=== PATIENT | male | born 1930 | race Caucasian/White ===

== ENCOUNTER 2017-09-29 20:47 | Inpatient (IN) | payer MEDICARE ==
[~2017-09-29] VITALS: Ht 175.3 cm; Wt 67.2 kg
--- NOTE | ~2017-09-29 | HP ---
PATIENT: WILLIE ROE MEDICAL RECORD: [id number] ACCOUNT: [id number] LOCATION:[facility] D.2303 : 30 ADMISSION DATE: 09/29/17 HISTORY AND PHYSICAL EXAMINATION CHIEF COMPLAINT: Fall. HISTORY OF PRESENT ILLNESS: The patient is an 87-year-old gentleman who does reside [facility] by himself. Apparently, he was attempting to go to restroom when he fell, presented complaining of pain in the left hip, presented to the Emergency Room. The patient was found to have no evidence of fracture, but felt that the patient should be admitted. He had the Emergency Room physician who has spoken to my partner, Dr. Hoff and was told the patient did have pneumonia. Therefore, he warranted admission. The patient apparently had an x-ray of the hip as well as CT scan of the head, which were unremarkable, results are not available at the present time. PAST MEDICAL HISTORY: He has had bilateral carotid endarterectomies, he also had coronary artery bypass grafting times 2, he has had hyperlipidemia. ALLERGIES: PENICILLIN, MORPHINE. MEDICATIONS: Atorvastatin 10 mg once a day, lisinopril 20 mg once a day, amlodipine 5 mg once a day. HABITS: The patient states he drinks 1 glass of wine daily. He denies any tobacco use or abuse. SOCIAL HISTORY: The patient was born in [place], grew up in [place]. He has worked as pharmaceutical rep in the past. He currently volunteers at [employer]. FAMILY HISTORY: Apparently father of some some veneral disease, age unknown. Mother in 80s, reasons unknown. REVIEW OF SYSTEMS: CONSTITUTIONAL: He denies any headaches, seizure, or syncope. Denies change in visual or auditory acuity. PULMONARY: He denies any shortness of breath, cough or congestion, history of TB, asthma, or bronchitis. CARDIOVASCULAR: He has had no chest pain, palpitations, PND, or orthopnea. GASTROINTESTINAL: No chronic nausea, vomiting, melena, or hematochezia. GENITOURINARY: No urgency, frequency, or dysuria. PHYSICAL EXAMINATION: GENERAL: The patient is alert and he is oriented times 3. VITAL SIGNS: Temperature is 98, pulse 95, respirations 18, blood pressure 122/51, and O2 sat is 95%. HEENT: Head is normocephalic. No lesions. Ears: TMs clear. Eyes: Pupils equal, round and reactive to light. Extraocular movements are intact. Nasal cavity, oral cavity, and oropharynx clear. NECK: Supple. There is no adenopathy. HEART: Has a regular rate and rhythm without any murmurs, gallops, or rubs. LUNGS: Clear. ABDOMEN: Soft, bowel sounds positive. The patient does have pain over the left HISTORY AND PHYSICAL [id number] WILLIE ROE greater trochanter. LABORATORY DATA: White count is 12, hemoglobin 12.5, hematocrit 36.9, platelets are 267. Sodium of 134, potassium 3.9, chloride is 98, BUN is 15, creatinine of 1. Urinalysis was not done. Influenza A and B are not done. ASSESSMENT: Status post fall, contusion of left hip, supposed pneumonia, results not present at the current time. PLAN: The patient will be admitted. He will be started on Levaquin, but we will repeat chest x-ray, also repeat his CBC and BMP in a.m., possible discharge. TRANSINT:[id number] Voice Confirmation ID: [id number] DOCUMENT ID: [id number] AMBIKA WILLIS MD at 0656 CC: [id number] DICTATION DATE: 09/30/17719 UPPER CASER: 09/30/17913 DIS IN 10/05/17 [address] [place] [address]
--- NOTE | ~2017-09-29 | CN ---
PATIENT NAME:WILLIE ROE MEDICAL RECORD: [id number] : 30 LOCATION:[id number] ADMIT DATE: 09/29/17 ACCOUNT: [id number] CONSULTING PHYSICIAN: MIKA CANCINO MD REFERRING PHYSICIAN: KIARA QUICK DO DATE OF CONSULTATION: 10/02/2017 HISTORY OF PRESENT ILLNESS: An 87-year-old gentleman with history of coronary artery disease as well as cerebrovascular disease, admitted for a hip fracture. He is status post ORIF. 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 He has no history of cardiac arrhythmias. He has history of coronary artery disease as described above and some breathlessness, not markedly symptomatic. We are asked to see him concerning his cardiovascular status. PAST MEDICAL HISTORY: Includes; 1. History of coronary artery disease, status post grafting. 2. Carotid artery disease, status post endarterectomy. 3. Hypertension. 4. Hyperlipidemia. MEDICATIONS: Includes atorvastatin 10 mg p.o. daily, lisinopril 20 daily, amlodipine 5 daily. SOCIAL HISTORY: Retired. He is a nonsmoker. He lives independently. He takes care of all his ADLs, volunteers at [employer]. REVIEW OF SYSTEMS: The patient reports easy bruising but reports no swollen glands. The patient reports no fever, no night sweats, no significant weight gain, no significant weight loss. No significant exercise tolerance. The patient reports no dry eyes, no irritation, no vision change. Patient reports no difficulty hearing and no ear pain. Patient reports no frequent nose bleeds or nose and sinus problems. Patient reports on arm pain on exertion. No shortness of breath while lying down. No history of heart murmur. Patient reports no cough, no wheezing or coughing up blood. Patient reports no abdominal pain, no vomiting. Normal appetite. No diarrhea and not vomiting blood. No nausea and no constipation. Patient reports no incontinence. No difficulty urinating. No hematuria. No increased frequency. Patient reports no muscle aches. No weakness, no arthralgias, no back pain. No swelling of the extremities. Patient reports no abnormal mole, no jaundice, no rashes. Reports no loss of consciousness. No weakness and no numbness. No seizures, dizziness, or headaches. The patient reports no depression, no sleep disturbance, feeling safe in a relationship and no alcohol abuse. Patient reports on fatigue. Reports no runny nose or sinus pressure. No itching, no hives, and no frequent sneezing. ALLERGIES: PENICILLIN, MORPHINE. PHYSICAL EXAMINATION: GENERAL: Pleasant gentleman in no acute distress. VITAL SIGNS: Pulse is 70 and sinus. Blood pressure 112/74. HEENT: Normocephalic, atraumatic. NECK: No JVD or bruit. HEART: Regular. LUNGS: Henry are clear. CONSULT REPORT [id number] WILLIE ROE ABDOMEN: Soft, nontender. EXTREMITIES: Pulses 2+ with no edema. 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 Suspect cardiac enzymes are elevated due to demand ischemia. We would treat currently with low dose sotalol perioperatively, we will try to continue this agent for 2 months. Check echocardiograph study. Further recommendations based on the above. TRANSINT:[id number] Voice Confirmation ID: [id number] DOCUMENT ID: [id number] MIKA CANCINO MD at 1144 CC: [id number] DICTATION DATE: 10/02/17 1516 WELDER PIPE MAKING: 10/02/17 1602 ADM IN [facility] [address] [place] [address]
--- NOTE | ~2017-09-29 | OP ---
PATIENT NAME: WILLIE ROE MEDICAL RECORD: [id number] :30 LOCATION:[facility] D.2303 ADMISSION DATE:09/29/17 SURGEON: AMBIKA GOMEZ MD DATE OF OPERATION: 10/02/2017 PREOPERATIVE DIAGNOSIS: Displaced femoral neck fracture of the left hip. POSTOPERATIVE DIAGNOSIS: Displaced femoral neck fracture of the left hip. PROCEDURE: Bipolar endoprosthesis of the left hip. SURGEON: Ambika Gomez MD ANESTHESIA: General. INTRAOPERATIVE COMPLICATIONS: None. SUMMARY OF PATHOLOGIC FINDINGS: The patient had a displaced femoral neck fracture consistent with the preoperative diagnosis. IMPLANTS USED: Nancie Accolade II, 132 stem x 6, 26 mm -3 femoral head, and a 50 mm x 26 universal bipolar component. ESTIMATED BLOOD LOSS: 100 cc. OPERATIVE SUMMARY IN DETAIL: After obtaining the appropriate preoperative orthopedic surgery consent as well as anesthetic consultation, evaluation and clearance, the patient was brought to the operating room and placed on the operating table in supine position. After adequate spinal anesthesia was administered, the patient was placed in a right lateral decubitus position. All pressure points were well padded to include down leg peroneal pad as well as axillary roll. The patient was held firmly to the operating table using the vacuum pack suction system. Left lower extremity and hip were prepped and draped in a routine sterile fashion. Curvilinear incision made over the greater trochanter, taken down to IT band. The IT band was split in line with fibers of the IT band to reveal gluteus medius and minimus attachment to the greater trochanter. These were reflected anteriorly. The hip capsule was split in a T-type fashion. Fracture hematoma was removed. Femoral neck cut was made using the Accolade femoral neck cutting guide and the head was extracted from the acetabulum. The acetabulum was swept. There were no intraarticular fragments. Serial and sequential reaming and broaching were done for a size 6 TMZF II Accolade coated stem. This was put into place. Trials were undertaken, -3 x 26 was though to be the most appropriate. This was articulated and tapped into the Lyn taper. Hip was reduced. Intraoperative radiographs were taken and showed good position and placement of all components. Capsule was closed with #2 Ethibond followed by #5 Ethibond reapproximation of the gluteus medius and minimus in a transosseous fashion back to the greater trochanter. IT band was closed with #2 Ethibond. The skin was closed with #1 Vicryl, 2-0 Vicryl and skin reza. Sterile dressings were applied. The patient was then taken to recovery room in stable condition. All final needle and sponge counts were correct. TRANSINT:[id number] Voice Confirmation ID: [id number] DOCUMENT ID: [id number] OPERATIVE REPORT [id number] WILLIE ROE MD, AMBIKA DOMINGUEZ at 1527 CC: [id number] DICTATION DATE: 10/02/17 0858 DRY MOP MAKER: 10/02/17 1203 ADM IN [facility] [address] [place] [address]
[2017-09-29 22:53] LABS: BASOPHILS 0.1 % (0-2); EOSINOPHILS 0.2 % (0-7); HEMATOCRIT 36.9 % (42.0-54.0); HEMOGLOBIN 12.5 g/dL (13.5-17.5); IMMATURE GRANULOCYTES 0.7 % (0-5); LYMPHOCYTES 6.8 % (15-50); MCH 31.5 pg (26.0-34.0); MCHC 33.9 g/dL (31.0-37.0); MCV 92.9 fL (80.0-100.0); MEAN PLATELET VOLUME 9.9 fL (7.4-10.4); MONOCYTES 10.7 % (2-11); NEUTROPHILS 81.5 % (40-80); PLATELET COUNT 267 10x3/uL (130-400); RBC 3.97 10x6/uL (4.20-6.10); RDW 12.6 % (11.5-14.5)
[2017-09-29 23:02] LABS: ALKALINE PHOSPHATASE 99 U/L (46-116); ALT (SGPT) 52 U/L (10-68); BILIRUBIN - TOTAL 0.68 mg/dL (0.2-1.3); CALC OSMOLALITY 270 mosm/kg (275-300); CALCIUM 9.3 mg/dL (8.5-10.1); CARBON DIOXIDE 28.7 mmol/L (21.0-32.0); CHLORIDE - SERUM 98 mmol/L (98-107); GLUCOSE 127 mg/dL (74-106); POTASSIUM - SERUM 3.9 mmol/L (3.5-5.1); PROTEIN - SERUM 7.4 g/dL (6.4-8.2); SODIUM 134 mmol/L (136-145); UREA NITROGEN 15 mg/dL (7-18); eGFR NON AFRICAN AMERICAN 75 mL/min (90-120)
[2017-09-29 23:10] LABS: LIPASE 78 U/L (73-393); PRO BNP 1081 pg/mL (0-450); TROPONIN-I < 0.017 ng/mL (0.000-0.060)
[2017-09-30] MEDS ORDERED: LIPITOR20 MG PO (00:52)
[2017-09-30] MEDS ORDERED: NORVASC5 MG PO (00:55)
[2017-09-30] MEDS ORDERED: PRINIVIL20 MG PO (00:57)
[2017-09-30] MEDS ORDERED: ULTRAM50 MG PO (00:58)
[2017-09-30 02:36] VITALS: BP 144/62; BMI 22.2
[2017-09-30 04:00] VITALS: BP 108/53
[2017-09-30 09:36] VITALS: BP 131/54
[2017-09-30 12:49] VITALS: BP 118/53
[2017-09-30 16:35] VITALS: BP 110/49
[2017-10-01] VITALS: BP 110/56
[2017-10-01 04:00] VITALS: BP 107/57
[2017-10-01 04:47] LABS: BASOPHILS 0.2 % (0-2); EOSINOPHILS 2.9 % (0-7); HEMATOCRIT 33.9 % (42.0-54.0); HEMOGLOBIN 11.5 g/dL (13.5-17.5); IMMATURE GRANULOCYTES 0.5 % (0-5); LYMPHOCYTES 8.5 % (15-50); MCH 31.4 pg (26.0-34.0); MCHC 33.9 g/dL (31.0-37.0); MCV 92.6 fL (80.0-100.0); MEAN PLATELET VOLUME 9.7 fL (7.4-10.4); MONOCYTES 7.4 % (2-11); NEUTROPHILS 80.5 % (40-80); PLATELET COUNT 279 10x3/uL (130-400); RBC 3.66 10x6/uL (4.20-6.10); RDW 12.6 % (11.5-14.5); WBC 13.2 10x3/uL (4.8-10.8)
[2017-10-01 05:11] LABS: CALC OSMOLALITY 269 mosm/kg (275-300); CARBON DIOXIDE 28.1 mmol/L (21.0-32.0); CHLORIDE - SERUM 99 mmol/L (98-107); GLUCOSE 108 mg/dL (74-106); SODIUM 134 mmol/L (136-145); UREA NITROGEN 16 mg/dL (7-18); eGFR NON AFRICAN AMERICAN 75 mL/min (90-120)
[2017-10-01 07:56] VITALS: BP 108/57
[2017-10-01 12:23] VITALS: BP 116/55
[2017-10-01 16:00] VITALS: BP 133/68
[2017-10-02] VITALS (22 sets, daily range): BP systolic 88–149; BP diastolic 6–88
[2017-10-02 06:13] LABS: BASOPHILS 0.1 % (0-2); EOSINOPHILS 2.5 % (0-7); HEMATOCRIT 35.1 % (42.0-54.0); HEMOGLOBIN 11.8 g/dL (13.5-17.5); IMMATURE GRANULOCYTES 0.6 % (0-5); LYMPHOCYTES 9.9 % (15-50); MCH 31.1 pg (26.0-34.0); MCHC 33.6 g/dL (31.0-37.0); MCV 92.4 fL (80.0-100.0); MEAN PLATELET VOLUME 9.8 fL (7.4-10.4); MONOCYTES 8.1 % (2-11); NEUTROPHILS 78.8 % (40-80); PLATELET COUNT 309 10x3/uL (130-400); RDW 12.9 % (11.5-14.5); WBC 10.5 10x3/uL (4.8-10.8)
[2017-10-02 06:37] LABS: ALBUMIN 2.1 g/dL (3.4-5.0); ALKALINE PHOSPHATASE 93 U/L (46-116); ALT (SGPT) 27 U/L (10-68); CALC OSMOLALITY 269 mosm/kg (275-300); CALCIUM 9.2 mg/dL (8.5-10.1); CARBON DIOXIDE 27.4 mmol/L (21.0-32.0); CHLORIDE - SERUM 99 mmol/L (98-107); CREATININE - SERUM 0.9 mg/dL (0.6-1.3); GLUCOSE 94 mg/dL (74-106); POTASSIUM - SERUM 3.9 mmol/L (3.5-5.1); PROTEIN - SERUM 6.3 g/dL (6.4-8.2); SODIUM 135 mmol/L (136-145); UREA NITROGEN 12 mg/dL (7-18); eGFR NON AFRICAN AMERICAN 85 mL/min (90-120)
[2017-10-02 14:58] LABS: CKMB 14.8 U/L (0.0-3.6); CREATINE KINASE 648 UL (21-232)
[2017-10-02 15:01] LABS: TROPONIN-I 0.144 ng/mL (0.000-0.060)
[2017-10-02 19:58] LABS: CKMB 15.7 U/L (0.0-3.6); CREATINE KINASE 754 UL (21-232)
[2017-10-02 20:04] LABS: TROPONIN-I 0.239 ng/mL (0.000-0.060)
[2017-10-03] VITALS (15 sets, daily range): BP systolic 89–141; BP diastolic 52–72; Ht 175.3 cm; Wt 67.2 kg
[2017-10-03 02:06] LABS: CKMB 6.7 U/L (0.0-3.6); CREATINE KINASE 649 UL (21-232)
[2017-10-03 02:07] LABS: TROPONIN-I 0.269 ng/mL (0.000-0.060)
[2017-10-03 04:53] LABS: HEMATOCRIT 33.1 % (42.0-54.0); MCH 30.6 pg (26.0-34.0); MCHC 33.2 g/dL (31.0-37.0); MCV 92.2 fL (80.0-100.0); MEAN PLATELET VOLUME 9.4 fL (7.4-10.4); RBC 3.59 10x6/uL (4.20-6.10); RDW 12.7 % (11.5-14.5)
[2017-10-03 04:57] LABS: WBC 13.3 10x3/uL (4.8-10.8)
[2017-10-04 03:00] VITALS: BP 133/70
[2017-10-04 04:14] LABS: BASOPHILS 0.1 % (0-2); EOSINOPHILS 2.3 % (0-7); HEMATOCRIT 31.6 % (42.0-54.0); HEMOGLOBIN 10.5 g/dL (13.5-17.5); IMMATURE GRANULOCYTES 0.4 % (0-5); LYMPHOCYTES 10.3 % (15-50); MCH 30.9 pg (26.0-34.0); MCHC 33.2 g/dL (31.0-37.0); MCV 92.9 fL (80.0-100.0); MEAN PLATELET VOLUME 9.4 fL (7.4-10.4); MONOCYTES 13.9 % (2-11); PLATELET COUNT 344 10x3/uL (130-400); RDW 13.1 % (11.5-14.5); WBC 13.4 10x3/uL (4.8-10.8)
[2017-10-04 04:36] LABS: ALKALINE PHOSPHATASE 77 U/L (46-116); ALT (SGPT) 28 U/L (10-68); BILIRUBIN - TOTAL 0.46 mg/dL (0.2-1.3); CALC OSMOLALITY 276 mosm/kg (275-300); CALCIUM 8.8 mg/dL (8.5-10.1); CARBON DIOXIDE 29.7 mmol/L (21.0-32.0); CHLORIDE - SERUM 102 mmol/L (98-107); CREATININE - SERUM 0.7 mg/dL (0.6-1.3); GLUCOSE 140 mg/dL (74-106); PROTEIN - SERUM 6.1 g/dL (6.4-8.2); SODIUM 137 mmol/L (136-145); UREA NITROGEN 15 mg/dL (7-18); eGFR NON AFRICAN AMERICAN > 90 mL/min (90-120)
[2017-10-04 07:00] VITALS: BP 140/74
[2017-10-04 11:00] VITALS: BP 114/87
[2017-10-04 15:00] VITALS: BP 103/52
[2017-10-04 19:00] VITALS: BP 114/75
[2017-10-04 23:00] VITALS: BP 116/56
[2017-10-05 03:00] VITALS: BP 123/55
[2017-10-05 07:00] VITALS: BP 126/52
[2017-10-05 07:44] LABS: BASOPHILS 0.2 % (0-2); EOSINOPHILS 3.4 % (0-7); HEMATOCRIT 31.5 % (42.0-54.0); HEMOGLOBIN 10.5 g/dL (13.5-17.5); IMMATURE GRANULOCYTES 0.8 % (0-5); LYMPHOCYTES 14.8 % (15-50); MCHC 33.3 g/dL (31.0-37.0); MCV 92.9 fL (80.0-100.0); MEAN PLATELET VOLUME 9.2 fL (7.4-10.4); MONOCYTES 13.6 % (2-11); NEUTROPHILS 67.2 % (40-80); PLATELET COUNT 340 10x3/uL (130-400); RBC 3.39 10x6/uL (4.20-6.10); RDW 13.1 % (11.5-14.5)
[2017-10-05 07:54] LABS: WBC 9.8 10x3/uL (4.8-10.8)
[2017-10-05 08:07] LABS: CALCIUM 8.9 mg/dL (8.5-10.1); CARBON DIOXIDE 30.7 mmol/L (21.0-32.0); CHLORIDE - SERUM 102 mmol/L (98-107); GLUCOSE 119 mg/dL (74-106); POTASSIUM - SERUM 4.3 mmol/L (3.5-5.1); SODIUM 138 mmol/L (136-145); eGFR NON AFRICAN AMERICAN 85 mL/min (90-120)
[2017-10-05 08:08] LABS: CALC OSMOLALITY 279 mosm/kg (275-300); CREATININE - SERUM 0.9 mg/dL (0.6-1.3); UREA NITROGEN 22 mg/dL (7-18)
[2017-10-05 11:00] VITALS: BP 112/63
[2017-10-05 15:00] VITALS: BP 105/71
[2017-10-05 20:00] VITALS: BP 135/68
[2017-10-05] MEDS ORDERED: ELIQUIS2.5 MG PO (22:00)
[2017-10-05] MEDS ORDERED: MUCINEX600 MG PO (22:01)
[2017-10-05] MEDS ORDERED: FLORAJEN3 CAPS460 MG PO (22:02)
[2017-10-05] MEDS ORDERED: BETAPACE 80 MG80 MG PO (22:03)
[2017-10-05] MEDS ORDERED: ACETAMINOPHEN325 MG PO (22:04)
== END 2017-10-05 20:52 | DRG 469 ==
LOC: D.ER 20:47 → D.MS 23:54 → D.ICU 23:54
PROVIDERS: Family Medicine; Orthopaedic Surgery
PROC: 0SRS0JZ Replacement of Left Hip Joint, Femoral Surface with Synthetic Substitute, Open Approach (ICD-10-PCS; principal; 2017-10-02 07:30)
DX: S72.002A Fracture of unspecified part of neck of left femur, initial encounter for closed fracture (principal); J18.9 Pneumonia, unspecified organism; I47.1 Supraventricular tachycardia; W18.30XA Fall on same level, unspecified, initial encounter; I25.10 Atherosclerotic heart disease of native coronary artery without angina pectoris; I10 Essential (primary) hypertension; E78.5 Hyperlipidemia, unspecified; Z95.1 Presence of aortocoronary bypass graft

== ENCOUNTER 2017-10-05 20:45 | Inpatient (IN) | payer MEDICARE, OTHER ==
[~2017-10-05] VITALS: Ht 175.3 cm; Wt 68.0 kg
--- NOTE | ~2017-10-05 | EC ---
PATIENT:WILLIE ROE DATE OF SERVICE: 10/05/17 SEX: M MEDICAL RECORD: [id number] DATE OF : 30 [facility] AGE [facility]: 87 ADMISSION DATE: 10/05/17 REFERRING PHYSICIAN: INTERPRETING PHYSICIAN: MIKA CANCINO MD ECHOCARDIOGRAM REPORT ECHO CHARGES CLINICAL DIAGNOSIS: ECHOCARDIOGRAPHIC MEASUREMENTS (adult normal given) AC root (d.<3.7cm) cm LV Septum d (<1.2 cm> cm Valve Excursion cm LV Septum (systole) cm Left Atria (s.<4.0cm> cm LVPW d(<1.2cm) cm RV (d.<2.3cm) cm LVPW (sytole) cm LV diastole(<5.6CM) cm MV E-F(>70mm/sec) cm LV systole cm LVOT Diameter cm MV exc.(>10mm) cm Est.ejection fraction (50-75%) % Pericardial Effusion DOPPLER: LVIT cm/sec A cm/sec E cm/sec LA cm/sec RVSP mmHg LVOT cm/sec AOP1/2T m/s Asc. Ao cm/sec RVOT cm/sec RA cm/sec PA cm/sec AV Gradient Peak mmHg AV Mean mmHg AV Area cm MV Gradient Peak mmHg MV Mean mmHg MV Area cm COMMENTS: State Pilot: Manuscript Reader: MARIA G DATE OF SERVICE: 10/03/2017 Adequate 2-D echo, color flow, spectral Doppler, and M-mode. No LVH. LV internal dimensions are normal. LV is globally hypokinetic with reduced EF. Estimated EF is 40% to 45%. Aortic valve sclerosis without stenosis by Doppler interrogation. Left atrium is normal. Mitral valve shows no prolapse. Mild MR. Right-sided chamber is grossly normal. Moderate TR. TRANSINT:[id number] Voice Confirmation ID: [id number] DOCUMENT ID: [id number] ECHOCARDIOGRAM REPORT [id number] WILLIE ROE 10/10/2017 Edited to correct date of service, dmm. MIKA CANCINO MD at 1210 CC: [id number] DICTATION DATE: 10/06/17 0913 SPECIAL EDUCATION ASSOCIATE: 10/06/17 1120 [place] [id number]
[~2017-10-05 20:45] MED LIST: LIPITOR20 MG PO; NORVASC5 MG PO; PRINIVIL20 MG PO; ULTRAM50 MG PO
[2017-10-05] MEDS ORDERED: ELIQUIS2.5 MG PO (22:00)
[2017-10-05] MEDS ORDERED: MUCINEX600 MG PO (22:01)
[2017-10-05] MEDS ORDERED: FLORAJEN3 CAPS460 MG PO (22:02)
[2017-10-05] MEDS ORDERED: BETAPACE 80 MG80 MG PO (22:03)
[2017-10-05] MEDS ORDERED: ACETAMINOPHEN325 MG PO (22:04)
[2017-10-05 22:28] VITALS: BP 130/63; BMI 22.2
[2017-10-06 06:19] LABS: BASOPHILS 0.2 % (0-2); EOSINOPHILS 3.6 % (0-7); HEMATOCRIT 32.2 % (42.0-54.0); HEMOGLOBIN 10.6 g/dL (13.5-17.5); IMMATURE GRANULOCYTES 0.7 % (0-5); LYMPHOCYTES 17.5 % (15-50); MCH 30.9 pg (26.0-34.0); MCHC 32.9 g/dL (31.0-37.0); MCV 93.9 fL (80.0-100.0); MEAN PLATELET VOLUME 9.2 fL (7.4-10.4); MONOCYTES 11.9 % (2-11); NEUTROPHILS 66.1 % (40-80); PLATELET COUNT 374 10x3/uL (130-400); RBC 3.43 10x6/uL (4.20-6.10); RDW 12.9 % (11.5-14.5); WBC 8.3 10x3/uL (4.8-10.8)
[2017-10-06 06:48] LABS: CALC OSMOLALITY 275 mosm/kg (275-300); CALCIUM 8.4 mg/dL (8.5-10.1); CARBON DIOXIDE 27.6 mmol/L (21.0-32.0); CHLORIDE - SERUM 102 mmol/L (98-107); CREATININE - SERUM 0.7 mg/dL (0.6-1.3); GLUCOSE 110 mg/dL (74-106); POTASSIUM - SERUM 4.4 mmol/L (3.5-5.1); SODIUM 136 mmol/L (136-145); UREA NITROGEN 20 mg/dL (7-18); eGFR NON AFRICAN AMERICAN > 90 mL/min (90-120)
[2017-10-06 08:00] VITALS: BP 124/59
[2017-10-06 19:42] VITALS: BP 121/53
[2017-10-07 08:06] LABS: RBC 3.62 10x6/uL (4.20-6.10); WBC 8.4 10x3/uL (4.8-10.8)
[2017-10-07 08:07] LABS: BASOPHILS 0.4 % (0-2); EOSINOPHILS 2.5 % (0-7); HEMATOCRIT 33.4 % (42.0-54.0); LYMPHOCYTES 14.9 % (15-50); MCH 30.4 pg (26.0-34.0); MCHC 32.9 g/dL (31.0-37.0); MCV 92.3 fL (80.0-100.0); MEAN PLATELET VOLUME 9.1 fL (7.4-10.4); MONOCYTES 10.6 % (2-11); NEUTROPHILS 70.6 % (40-80); RDW 12.8 % (11.5-14.5)
[2017-10-07 08:13] LABS: PLATELET COUNT 494 10x3/uL (130-400)
[2017-10-07 08:19] LABS: CALC OSMOLALITY 271 mosm/kg (275-300); CARBON DIOXIDE 27.4 mmol/L (21.0-32.0); CHLORIDE - SERUM 100 mmol/L (98-107); CREATININE - SERUM 0.8 mg/dL (0.6-1.3); GLUCOSE 97 mg/dL (74-106); POTASSIUM - SERUM 4.2 mmol/L (3.5-5.1); SODIUM 135 mmol/L (136-145); UREA NITROGEN 19 mg/dL (7-18); eGFR NON AFRICAN AMERICAN > 90 mL/min (90-120)
[2017-10-07 08:38] VITALS: BP 129/55
[2017-10-07 17:15] VITALS: Ht 175.3 cm; Wt 68.0 kg
[2017-10-07 19:00] VITALS: BP 130/54
[2017-10-08 07:56] VITALS: BP 118/55
[2017-10-08 19:30] VITALS: BP 108/48
[2017-10-09 08:32] VITALS: BP 126/80
[2017-10-09 21:04] VITALS: BP 102/43
[2017-10-10 06:57] LABS: BASOPHILS 0.5 % (0-2); HEMOGLOBIN 10.5 g/dL (13.5-17.5); IMMATURE GRANULOCYTES 0.8 % (0-5); LYMPHOCYTES 19.9 % (15-50); MCH 30.3 pg (26.0-34.0); MCHC 32.8 g/dL (31.0-37.0); MCV 92.5 fL (80.0-100.0); MEAN PLATELET VOLUME 9.4 fL (7.4-10.4); MONOCYTES 11.1 % (2-11); NEUTROPHILS 64.7 % (40-80); RBC 3.46 10x6/uL (4.20-6.10); WBC 7.4 10x3/uL (4.8-10.8)
[2017-10-10 06:58] LABS: PLATELET COUNT 617 10x3/uL (130-400)
[2017-10-10 07:26] LABS: CALC OSMOLALITY 267 mosm/kg (275-300); CALCIUM 8.8 mg/dL (8.5-10.1); CARBON DIOXIDE 29.8 mmol/L (21.0-32.0); CHLORIDE - SERUM 99 mmol/L (98-107); CREATININE - SERUM 0.8 mg/dL (0.6-1.3); GLUCOSE 98 mg/dL (74-106); POTASSIUM - SERUM 4.7 mmol/L (3.5-5.1); SODIUM 134 mmol/L (136-145); UREA NITROGEN 13 mg/dL (7-18); eGFR NON AFRICAN AMERICAN > 90 mL/min (90-120)
[2017-10-10 19:00] VITALS: BP 118/67
[2017-10-11 08:14] VITALS: BP 125/53
[2017-10-11 19:00] VITALS: BP 132/56
[2017-10-12 08:19] VITALS: BP 135/61
[2017-10-12 19:00] VITALS: BP 122/51
[2017-10-13 07:27] LABS: BASOPHILS 0.5 % (0-2); EOSINOPHILS 1.9 % (0-7); HEMATOCRIT 34.7 % (42.0-54.0); HEMOGLOBIN 11.5 g/dL (13.5-17.5); IMMATURE GRANULOCYTES 0.3 % (0-5); LYMPHOCYTES 21.4 % (15-50); MCH 30.9 pg (26.0-34.0); MCHC 33.1 g/dL (31.0-37.0); MCV 93.3 fL (80.0-100.0); MEAN PLATELET VOLUME 9.4 fL (7.4-10.4); NEUTROPHILS 64.9 % (40-80); PLATELET COUNT 644 10x3/uL (130-400); RBC 3.72 10x6/uL (4.20-6.10); RDW 13.2 % (11.5-14.5); WBC 7.9 10x3/uL (4.8-10.8)
[2017-10-13 07:39] LABS: CALC OSMOLALITY 269 mosm/kg (275-300); CALCIUM 9.4 mg/dL (8.5-10.1); CARBON DIOXIDE 28.7 mmol/L (21.0-32.0); CHLORIDE - SERUM 99 mmol/L (98-107); CREATININE - SERUM 0.8 mg/dL (0.6-1.3); GLUCOSE 105 mg/dL (74-106); POTASSIUM - SERUM 4.4 mmol/L (3.5-5.1); SODIUM 135 mmol/L (136-145); UREA NITROGEN 12 mg/dL (7-18); eGFR NON AFRICAN AMERICAN > 90 mL/min (90-120)
[2017-10-13 08:00] VITALS: BP 127/58
[2017-10-13 23:05] VITALS: BP 109/63
[2017-10-14 08:00] VITALS: BP 130/58
[2017-10-14 22:05] VITALS: BP 116/65
[2017-10-15 08:14] VITALS: BP 135/59
[2017-10-15 12:46] LABS: BASOPHILS 0.4 % (0-2); EOSINOPHILS 1.4 % (0-7); HEMATOCRIT 36.6 % (42.0-54.0); IMMATURE GRANULOCYTES 0.4 % (0-5); MCH 30.8 pg (26.0-34.0); MCHC 32.8 g/dL (31.0-37.0); MCV 93.8 fL (80.0-100.0); MEAN PLATELET VOLUME 9.4 fL (7.4-10.4); NEUTROPHILS 71.8 % (40-80); PLATELET COUNT 823 10x3/uL (130-400); RDW 13.5 % (11.5-14.5); WBC 10.1 10x3/uL (4.8-10.8)
[2017-10-15 13:09] LABS: CALC OSMOLALITY 273 mosm/kg (275-300); CALCIUM 9.8 mg/dL (8.5-10.1); CARBON DIOXIDE 28.8 mmol/L (21.0-32.0); CHLORIDE - SERUM 99 mmol/L (98-107); GLUCOSE 135 mg/dL (74-106); SODIUM 134 mmol/L (136-145); UREA NITROGEN 23 mg/dL (7-18); eGFR NON AFRICAN AMERICAN 75 mL/min (90-120)
[2017-10-15 23:55] VITALS: BP 103/46
[2017-10-16 08:00] VITALS: BP 109/51
[2017-10-16 19:10] VITALS: BP 117/63
[2017-10-17 08:00] VITALS: BP 113/47
== END 2017-10-17 15:15 | disposition home health service (06) | DRG 535 ==
LOC: D.REHAB 20:45
PROVIDERS: Emergency Medicine
DX: S72.002A Fracture of unspecified part of neck of left femur, initial encounter for closed fracture (principal); J18.9 Pneumonia, unspecified organism; W19.XXXA Unspecified fall, initial encounter; D64.9 Anemia, unspecified; Z95.1 Presence of aortocoronary bypass graft; Z87.891 Personal history of nicotine dependence; E78.5 Hyperlipidemia, unspecified; I25.10 Atherosclerotic heart disease of native coronary artery without angina pectoris; I10 Essential (primary) hypertension